=== PATIENT | male | born 1975 | race Caucasian/White ===

== ENCOUNTER 2018-06-19 10:41 | Day surgery (SDC) | payer BC ==
[2018-06-19] MEDS: FAMOTIDINE 20 MG TAB PO ×2 (10:00→20:25)
[2018-06-19] MEDS: DIPHENHYDRAMINE 50 MG CAP PO (10:00)
[2018-06-19] MEDS: DIAZEPAM 5 MG TAB PO (10:00)
[~2018-06-19 10:41] MED LIST: SOD CHLORIDE 0.45% 1,000 ML IV
[2018-06-19 11:29] LABS: ADD MAN DIFF? NO; BASOPHIL # 0.1 10^3/ul (0.0-0.1); BASOPHILS % 0.6 % (0.0-2.0); HEMATOCRIT 45.8 % (42.0-52.0); LYMPHOCYTES % 33.1 % (15.0-51.0); MEAN CORPUSCULAR HEMOGLOBIN 29.6 pg (29.0-33.0); MEAN CORPUSCULAR HGB CONC 32.8 g/dl (32.0-37.0); MEAN CORPUSCULAR VOLUME 90.3 fl (82.0-101.0); MEAN PLATELET VOLUME 10.3 fl (7.4-10.4); MONOCYTE # 0.6 10^3/ul (0.3-0.9); MONOCYTES % 6.7 % (0.0-11.0); NEUTROPHIL # 5.3 10^3/ul (1.6-7.5); NEUTROPHILS % 59.3 % (39.0-77.0); PLATELET COUNT 214 10^3/UL (140-415); RED BLOOD COUNT 5.07 10^6/ul (4.70-6.10); RED CELL DISTRIBUTION WIDTH 13.5 % (11.5-14.5)
[2018-06-19 11:47] LABS: CHOL/HDL RATIO 4.9 RATIO; HDL CHOLESTEROL 33 mg/dl (27-67); LDL CHOLESTEROL,CALCULATED 100 mg/dl; TRIGLYCERIDES 151 mg/dl (0-149)
[2018-06-19 11:47] LABS: CHOLESTEROL 163 mg/dl (100-200)
[2018-06-19 12:00] LABS: INR 0.94; PARTIAL THROMBOPLASTIN TIME 26.4 Sec (25.0-35.0); PROTIME 12.7 Sec (11.9-14.9)
[2018-06-19] MEDS ORDERED: HEPARIN 1000 UNITS/ML 10 ML INJ (12:13)
[2018-06-19] MEDS ORDERED: IODIXANOL LOCM 100 ML BTL (12:13)
[2018-06-19] MEDS ORDERED: LIDOCAINE 1% (MDV) 10 ML INJ (12:13)
[2018-06-19] MEDS ORDERED: FENTAnyl 50 MCG/ML VIAL (12:14)
[2018-06-19] MEDS ORDERED: VERAPAMIL 5 MG INJ (12:14)
[2018-06-19] MEDS ORDERED: NITROGLYCERIN (IC) 100 MCG/ML INJ (12:14)
[2018-06-19] MEDS ORDERED: MIDAZOLAM 1 MG/ML 2 ML INJ (12:14)
[2018-06-19 12:42] LABS: ANION GAP 12 (8-16); BLOOD UREA NITROGEN 61 mg/dl (7-20); CALCIUM 9.4 mg/dl (8.4-10.2); CARBON DIOXIDE 28 mmol/L (21-31); CHLORIDE 99 mmol/L (97-110); GLUCOSE 150 mg/dl (70-220); SODIUM 134 mmol/L (135-144)
[2018-06-19] MEDS ORDERED: ASPIRIN 325 MG TAB (13:47)
[2018-06-19] MEDS ORDERED: CLOPIDOGREL 300 MG TAB (13:47)
[2018-06-19] MEDS: SOD CHLORIDE 0.9% 1,000 ML IV ×2 (13:47→18:13)
[2018-06-19] MEDS ORDERED: morphine 2 MG INJ IV ×2 (14:00→17:00)
[2018-06-19] MEDS ORDERED: OXYCODONE/ACETAMINOPHEN (5/325) TAB PO (14:00)
[2018-06-19] MEDS ORDERED: ONDANSETRON 4 MG INJ IV ×2 (14:00→17:00)
[2018-06-19] MEDS ORDERED: ACETAMINOPHEN 325 MG TAB PO ×2 (14:00→17:00)
[2018-06-19] MEDS ORDERED: AL HYDROX/MG HYDROX/SIMETH 30 ML CUP PO (14:00)
[2018-06-19] MEDS ORDERED: ZOLPIDEM 5 MG TAB PO (14:00)
[2018-06-19] MEDS ORDERED: NACL 0.9% 3 ML SYG IV (17:00)
[2018-06-19] MEDS ORDERED: DOCUSATE SODIUM 100 MG CAP PO (17:00)
[2018-06-19] MEDS: ACETYLCYSTEINE 600 MG CAP PO (20:24)
[2018-06-19 21:56] LABS: ADD UMIC NO; UR ASCORBIC ACID NEGATIVE (NEGATIVE); UR BILIRUBIN (Dip) NEGATIVE (NEGATIVE); UR BLOOD (Dip) NEGATIVE (NEGATIVE); UR CLARITY CLEAR (CLEAR); UR COLOR YELLOW (YELLOW); UR GLUCOSE (Dip) NEGATIVE (NEGATIVE); UR KETONES (Dip) NEGATIVE (NEGATIVE); UR LEUKOCYTE ESTERASE (Dip) NEGATIVE Leu/ul (NEGATIVE); UR NITRITE (Dip) NEGATIVE (NEGATIVE); UR SPECIFIC GRAVITY (Dip) 1.027 (1.003-1.030); UR TOTAL PROTEIN (Dip) NEGATIVE (NEGATIVE); UR UROBILINOGEN (Dip) NEGATIVE (NEGATIVE)
[2018-06-19 22:21] LABS: SODIUM,URINE RANDOM > 198 mmol/L (30-90)
[2018-06-20] MEDS: SOD CHLORIDE 0.9% 1,000 ML IV (04:32)
[2018-06-20 05:01] LABS: ADD MAN DIFF? NO
[2018-06-20 05:12] LABS: WHITE BLOOD COUNT 10.5 10^3/ul (4.8-10.8)
[2018-06-20 05:12] LABS: BASOPHIL # 0.1 10^3/ul (0.0-0.1); BASOPHILS % 0.5 % (0.0-2.0); HEMATOCRIT 45.1 % (42.0-52.0); HEMOGLOBIN 14.8 g/dl (14.0-18.0); LYMPHOCYTES % 28.8 % (15.0-51.0); MEAN CORPUSCULAR HEMOGLOBIN 29.6 pg (29.0-33.0); MEAN CORPUSCULAR HGB CONC 32.8 g/dl (32.0-37.0); MEAN CORPUSCULAR VOLUME 90.2 fl (82.0-101.0); MEAN PLATELET VOLUME 10.6 fl (7.4-10.4); MONOCYTE # 0.7 10^3/ul (0.3-0.9); MONOCYTES % 6.4 % (0.0-11.0); NEUTROPHIL # 6.7 10^3/ul (1.6-7.5); NEUTROPHILS % 63.9 % (39.0-77.0); PLATELET COUNT 217 10^3/UL (140-415); RED CELL DISTRIBUTION WIDTH 13.5 % (11.5-14.5)
[2018-06-20 05:49] LABS: ANION GAP 15 (8-16); BLOOD UREA NITROGEN 17 mg/dl (7-20); CALCIUM 9.2 mg/dl (8.4-10.2); CARBON DIOXIDE 23 mmol/L (21-31); CHLORIDE 109 mmol/L (97-110); CHOLESTEROL 151 mg/dl (100-200); CREATINE KINASE 177 IU/L (23-200); CREATININE 0.83 mg/dl (0.61-1.24); GLUCOSE 115 mg/dl (70-220); HDL CHOLESTEROL 25 mg/dl (27-67); LDL CHOLESTEROL,CALCULATED 83 mg/dl; POTASSIUM 4.5 mmol/L (3.5-5.1); SODIUM 142 mmol/L (135-144); TRIGLYCERIDES 216 mg/dl (0-149)
[2018-06-20 05:52] LABS: PHOSPHORUS 4.1 mg/dl (2.5-4.9)
[2018-06-20 05:52] LABS: CK INDEX 3.7; MAGNESIUM 1.9 mg/dl (1.7-2.5)
[2018-06-20 05:55] LABS: CK-MB 6.56 ng/ml (0.0-2.4)
[2018-06-20 07:08] LABS: HEMOGLOBIN A1C 6.2 % (0-5.9)
[2018-06-20] MEDS: ACETYLCYSTEINE 600 MG CAP PO (08:30)
[2018-06-20] MEDS: FAMOTIDINE 20 MG TAB PO (08:30)
[2018-06-20] MEDS: CLOPIDOGREL 75 MG TAB PO (08:30)
[2018-06-20] MEDS: ASPIRIN (EC) 81 MG TAB PO (08:30)
[2018-06-20] MEDS ORDERED: ATORVASTATIN 20 MG TAB PO (21:00)
== END 2018-06-20 14:45 | disposition home or self-care (01) ==
LOC: SDS 10:41 → REC 18:00 → SDS 10:41 → REC 15:20 → ICU 18:00 → SDS 06-20 14:45
DX: I25.10 Atherosclerotic heart disease of native coronary artery without angina pectoris (principal); Z95.5 Presence of coronary angioplasty implant and graft; E87.1 Hypo-osmolality and hyponatremia; E66.9 Obesity, unspecified; Z68.33 Body mass index [BMI] 33.0-33.9, adult; I10 Essential (primary) hypertension; E78.00 Pure hypercholesterolemia, unspecified; F17.210 Nicotine dependence, cigarettes, uncomplicated; Z79.82 Long term (current) use of aspirin; Z79.02 Long term (current) use of antithrombotics/antiplatelets
CPT/HCPCS: 71045; 76775; 80048; 80061; 81003; 82550; 82553; 83036; 83735; 84100; 84300; 84484; 85025; 85610; 85730; 87081; 89190; 93005; 93458